=== PATIENT | female | born 1985 | race American Indian/Alaskan Native ===

== ENCOUNTER 2020-08-09 16:07 | Emergency (ER) | payer MEDICAID ==
[2020-08-09] MEDS ORDERED: KETOROLAC 30 MG/1 ML INJ IV ONE (18:07)
[2020-08-09] MEDS ORDERED: dexAMETHasone 20 MG/5 ML VIAL IV ONE (18:07)
[2020-08-09] MEDS ORDERED: CYCLOBENZAPRINE 10 MG TAB PO ONE (18:07)
--- NOTE | 2020-08-09 18:09 | Emergency Department Report ---
ED Back Pain/Injury HPI - General Chief Complaint: Back Pain/Injury Stated Complaint: BACK PAIN Time Seen by Provider: 08/09/20 18:07 Source: patient Limitations: No Limitations - History of Present Illness Initial Comments: Patient is a 34-year-old female presents emergency room complaints of lower back pain that began 3 days ago. She states that the pain will radiate down her right leg. She states that she has pain with moving her legs and ambulating. She states that at times she feels like the back pain will make her legs weak. She is able to ambulate. She denies any numbness, bowel or bladder incontinence, fever, nausea, vomiting, diarrhea. She states that she had the same back pain 8 months ago but never followed up. She was evaluated in the emergency department at that time and had a x-ray of her lumbar spine which was within normal limits. She states that she has a past medical history of back pain secondary to a traumatic epidural approximately 7 years ago. She denies any medication allergies. - Related Data Previous Rx's Medication Instructions Recorded Last Taken Type Naproxen [Naprosyn] 500 mg PO BID #20 tablet 09/14/19 Unknown Rx methOCARBAMOL [Robaxin TAB] 500 mg PO Q8HR PRN #20 tablet 09/14/19 Unknown Rx predniSONE [Deltasone] 50 mg PO QDAY #5 tab 09/14/19 Unknown Rx traMADoL [Ultram] 50 mg PO Q6HR PRN #7 tablet 09/14/19 Unknown Rx Menthol/Camphor [[place] 1 applicatio TP BID #18 oint...g. 08/09/20 Unknown Rx Ointment] Naproxen [EC-Naprosyn] 500 mg PO BID PRN #14 tablet.dr 08/09/20 Unknown Rx methOCARBAMOL [Robaxin TAB] 500 mg PO BID PRN #14 tab 08/09/20 Unknown Rx traMADoL [Ultram 50 MG tab] 50 mg PO Q6HR PRN #10 tablet 08/09/20 Unknown Rx Allergies Allergy/AdvReac Type Severity Reaction Status Date / Time No Known Allergies Allergy Unverified 08/09/20 17:26 ED Review of Systems ROS: Stated complaint: BACK PAIN Other details as noted in HPI Comment: All other systems reviewed and negative ED Past Medical Hx - Past Medical History Additional medical history: BACK PAIN - Surgical History Additional Surgical History: - Social History Smoking Status: Current Every Day Smoker Substance Use Type: Alcohol - Medications Home Medications: Home Medications Medication Instructions Recorded Confirmed Last Taken Type Naproxen [Naprosyn] 500 mg PO BID #20 tablet 09/14/19 Unknown Rx methOCARBAMOL [Robaxin TAB] 500 mg PO Q8HR PRN #20 tablet 09/14/19 Unknown Rx predniSONE [Deltasone] 50 mg PO QDAY #5 tab 09/14/19 Unknown Rx traMADoL [Ultram] 50 mg PO Q6HR PRN #7 tablet 09/14/19 Unknown Rx Menthol/Camphor [[place] 1 applicatio TP BID #18 oint...g. 08/09/20 Unknown Rx Ointment] Naproxen [EC-Naprosyn] 500 mg PO BID PRN #14 tablet.dr 08/09/20 Unknown Rx methOCARBAMOL [Robaxin TAB] 500 mg PO BID PRN #14 tab 08/09/20 Unknown Rx traMADoL [Ultram 50 MG tab] 50 mg PO Q6HR PRN #10 tablet 08/09/20 Unknown Rx ED Physical Exam - General Limitations: No Limitations General appearance: alert, in no apparent distress - Head Head exam: Present: atraumatic, normocephalic - Eye Eye exam: Present: normal appearance - ENT ENT exam: Present: mucous membranes moist - Respiratory Respiratory exam: Present: normal lung sounds bilaterally. Absent: respiratory distress, wheezes, rales, rhonchi, stridor, chest wall tenderness, accessory muscle use, decreased breath sounds, prolonged expiratory - Cardiovascular Cardiovascular Exam: Present: regular rate, normal rhythm, normal heart sounds. Absent: diastolic murmur, rubs, gallop - Back Exam Back exam: Present: normal inspection, full ROM, paraspinal tenderness (lumbar), vertebral tenderness (lumbar), other (no erythema, no increased warmth, no skin changes) - Neurological Exam Neurological exam: Present: alert, oriented X3, CN II-XII intact, normal gait. Absent: motor sensory deficit - Psychiatric Psychiatric exam: Present: normal affect, normal mood - Skin Skin exam: Present: warm, dry, intact ED Course Vital Signs 08/09/20 17:30 Temperature 98.6 F Pulse Rate 85 Respiratory 20 Rate Blood Pressure 143/77 O2 Sat by Pulse 100 Oximetry ED Medical Decision Making - Radiology Data Radiology results: report reviewed Ordering Physician: NOMI YU Date of Service: 08/09/20 Procedure(s): CT lumbar spine wo con Accession Number(s): [id number] cc: NOMI YU CT lumbar spine wo con INDICATION / CLINICAL INFORMATION: 34 years Female; low back pain, pain radiates left side. TECHNIQUE: Axial CT images of the lumbar spine were obtained. Sagittal and coronal reformatted images were produced. All CT scans at this location are performed using CT dose reduction for ALARA by means of automated exposure control. COMPARISON: None available. FINDINGS: POST-SURGICAL CHANGES: None. ALIGNMENT: Straightening of the lumbar spine noted related to patient positioning. VERTEBRAE: No signs of fracture. Vertebral bodies are grossly normal in height throughout. No significant facet joint disease or osseous foraminal narrowing appreciated. INTERVERTEBRAL DISCS: At L4-5, there is mild disc bulge and mild canal narrowing. At L5-S1, there is mild disc bulge as well as a left paracentral/left lateral recess disc protrusion. Minimal facet hypertrophy noted. Findings encroach upon and certainly may affect the left S1 nerve. No significant foraminal narrowing. PARASPINAL SOFT TISSUES: No significant abnormality. ADDITIONAL FINDINGS: None. IMPRESSION: 1. No signs of discitis or epidural fluid collection. 2. Disc disease as described above. Most marked findings appear to be at L5-S1. Please correlate with dermatomal distribution of patient's symptoms, if present. Signer Name: Yasir Vicente MD, III Signed: 08/09/2020 8:01 PM Workstation Name: [email or web address] Transcribed By: HR Dictated By: Yasir Vicente MD Electronically Authenticated By: Yasir Vicente MD Signed Date/Time: 08/09/202000 DD/ 57 TD/TT: Print Cancel - Medical Decision Making Patient is a 34-year-old female presents emergency room complaints of lower back pain that began 3 days ago. She states that the pain will radiate down her right leg. She states that she has pain with moving her legs and ambulating. She states that at times she feels like the back pain will make her legs weak. She is able to ambulate. She denies any numbness, bowel or bladder incontinence, fever, nausea, vomiting, diarrhea. She states that she had the same back pain 8 months ago but never followed up. She was evaluated in the emergency department at that time and had a x-ray of her lumbar spine which was within normal limits. She states that she has a past medical history of back pain secondary to a traumatic epidural approximately 7 years ago. She denies any medication allergies. Vitals are stable. On exam: Midline and paraspinal lumbar tenderness palpation, no step-offs, no deformities, no focal neuro deficits. CT lumbar spine: 1. No signs of discitis or epidural fluid collection. 2. Disc disease as described above. Most marked findings appear to be at L5-S1. Please correlate with dermatomal distribution of patient's symptoms, if present. Discussed all results with patient and answered questions. Patient given medications while in the emergency department as she did not drive and symptoms improved. Discussed the importance of follow-up. Patient given prescription for Robaxin, naproxen, prednisone, tramadol, [place] balm ointment. Advised patient Use medication as prescribed. Do not drive or operate machinery while taking severe pain medication or muscle relaxer Robaxin. May use ice pack, heating pad, rest, and epsom salt bath. Follow-up with a orthopedic/spine doctor. Return to emergency room for any worsening symptoms. Critical care attestation.: If time is entered above; I have spent that time in minutes in the direct care of this critically ill patient, excluding procedure time. ED Disposition Clinical Impression: Bulging disc, Lumbar radiculopathy Low back pain Qualifiers: Chronicity: acute Back pain laterality: bilateral Sciatica presence: unspecified whether sciatica present Qualified Code(s): M54.5 - Low back pain Disposition: DC-01 TO HOME OR SELFCARE Is pt being admited?: No Does the pt Need Aspirin: No Condition: Stable Instructions: Herniated Disk, [id number], Lumbosacral Radiculopathy Additional Instructions: Use medication as prescribed. Do not drive or operate machinery while taking severe pain medication or muscle relaxer Robaxin. May use ice pack, heating pad, rest, and epsom salt bath. Follow-up with a orthopedic/spine doctor. Return to emergency room for any worsening symptoms. Prescriptions: Naproxen [EC-Naprosyn] 500 mg PO BID PRN #14 tablet.dr GALVAN Reason: pain methOCARBAMOL [Robaxin TAB] 500 mg PO BID PRN #14 tab PRN Reason: pain Menthol/Camphor [[place] Ointment] 1 applicatio TP BID #18 oint...g. traMADoL [Ultram 50 MG tab] 50 mg PO Q6HR PRN #10 tablet PRN Reason: Pain , Severe (7-10) Referrals: PRIMARY CAREMD [Primary Care Provider] - 2-3 Days NADINE BEARDEN II, MD [Staff Physician] - 2-3 Days Time of Disposition: 20:38 Print Language: BENGALI
[2020-08-09 18:40] LABS: Bilirubin,Urine NEG (Negative); Blood,Urine NEG (Negative); Color,Urine Yellow (Yellow); Mucus,Urine 1+ /HPF
[2020-08-09 18:41] LABS: HCG Qualitative,Urine Negative (Negative)
[2020-08-09] MEDS ORDERED: HYDROmorphone 1 MG/1 ML INJ IV ONE (20:05)
--- NOTE | 2020-08-09 20:05 | Cat Scan Report ---
CT lumbar spine wo con INDICATION / CLINICAL INFORMATION: 34 years Female; low back pain, pain radiates left side. TECHNIQUE: Axial CT images of the lumbar spine were obtained. Sagittal and coronal reformatted images were prod uced. All CT scans at this location are performed using CT dose reduction for ALARA by means of autom ated exposure control. COMPARISON: None available. FINDINGS: POST-SURGICAL CHANGES: None. ALIGNMENT: Straightening of the lumbar spine noted related to patient positioning. VERTEBRAE: No signs of fracture. Vertebral bodies are grossly normal in height throughout. No signif icant facet joint disease or osseous foraminal narrowing appreciated. INTERVERTEBRAL DISCS: At L4-5, there is mild disc bulge and mild canal narrowing. At L5-S1, there is mild disc bulge as well as a left paracentral/left lateral recess disc protrusion. Minimal facet hypertrophy noted. Findings encroach upon and certainly may affect the left S1 nerve. No significant foraminal narrowing. PARASPINAL SOFT TISSUES: No significant abnormality. ADDITIONAL FINDINGS: None. IMPRESSION: 1. No signs of discitis or epidural fluid collection. 2. Disc disease as described above. Most marked findings appear to be at L5-S1. Please correlate with dermatomal distribution of patient's symptoms, if present. Signer Name: Yasir Vicente MD, III Signed: 08/09/2020 8:01 PM Workstation Name: [email or web address] [email or web address]
[2020-08-10 02:55] VITALS: BP 117/52
== END 2020-08-09 21:00 | disposition home or self-care (01) ==
LOC: ED 16:07
DX: M54.16 Radiculopathy, lumbar region (principal); M51.36 Other intervertebral disc degeneration, lumbar region; F17.200 Nicotine dependence, unspecified, uncomplicated; Z79.899 Other long term (current) drug therapy
CPT/HCPCS: 72131; 81001; 81025; 96374; 96375; 99284; J1100; J1170; J1885

== ENCOUNTER 2020-08-24 20:56 | Emergency (ER) | payer MEDICAID ==
[2020-08-24 22:50] VITALS: BP 161/82
[2020-08-24] MEDS ORDERED: KETOROLAC 30 MG/1 ML INJ IM ONE (23:58)
[2020-08-24] MEDS ORDERED: dexAMETHasone 20 MG/5 ML VIAL IM ONE (23:58)
[2020-08-25] MEDS ORDERED: CYCLOBENZAPRINE 10 MG TAB PO ONE (00:06)
--- NOTE | 2020-08-25 00:57 | Emergency Department Report ---
ED Back Pain/Injury HPI - General Chief Complaint: Extremity Injury, Lower Stated Complaint: LT LEG PAIN Time Seen by Provider: 08/24/20 23:55 Source: patient Limitations: No Limitations - History of Present Illness Initial Comments: Patient is a 34-year-old -[place] female who presents with low back pain radiating from lumbar to left foot patient has history of same 2 months ago , patient denies new fall injury or trauma however pain is 8/10 . Pain is exacerbated by palpation and movement. Pain is relieved by rest. There is no numbness, tingling, deformity, patient states unable to ambulate due to pain. There is been no loss or decrease in bowel or bladder function. MD Complaint: back pain (Stenosis in his hand examining and is is is is is is been evaluated) - Related Data Previous Rx's Medication Instructions Recorded Last Taken Type Naproxen [Naprosyn] 500 mg PO BID #20 tablet 09/14/19 Unknown Rx methOCARBAMOL [Robaxin TAB] 500 mg PO Q8HR PRN #20 tablet 09/14/19 Unknown Rx predniSONE [Deltasone] 50 mg PO QDAY #5 tab 09/14/19 Unknown Rx traMADoL [Ultram] 50 mg PO Q6HR PRN #7 tablet 09/14/19 Unknown Rx Menthol/Camphor [[place] [employer] 1 applicatio TP BID #18 oint...g. 08/09/20 Unknown Rx Ointment] Naproxen [EC-Naprosyn] 500 mg PO BID PRN #14 tablet. 08/09/20 Unknown Rx methOCARBAMOL [Robaxin TAB] 500 mg PO BID PRN #14 tab 08/09/20 Unknown Rx traMADoL [Ultram 50 MG tab] 50 mg PO Q6HR PRN #10 tablet 08/09/20 Unknown Rx Acetaminophen/Codeine [Tylenol 1 tab PO Q6H PRN #12 tab 08/25/20 Unknown Rx /Codeine # 3 tab] Diclofenac [Ayaan Amin] 75 mg PO TID PRN #30 tablet 08/25/20 Unknown Rx Menthol/Camphor [[place] [employer] 1 applicatio TP Q6H PRN #1 tube 08/25/20 Unknown Rx Ointment] methOCARBAMOL [Robaxin TAB] 500 mg PO Q8H PRN 5 Days #15 tablet 08/25/20 Unknown Rx Allergies Allergy/AdvReac Type Severity Reaction Status Date / Time No Known Allergies Allergy Verified 08/24/20 22:26 ED Review of Systems ROS: Stated complaint: LT LEG PAIN Other details as noted in HPI Constitutional: denies: chills, fever Eyes: denies: eye pain, eye discharge, vision change ENT: denies: ear pain, throat pain Respiratory: denies: cough, shortness of breath, wheezing Cardiovascular: denies: chest pain, palpitations Endocrine: no symptoms reported Gastrointestinal: denies: abdominal pain, nausea, diarrhea Genitourinary: denies: urgency, dysuria, discharge Musculoskeletal: back pain, myalgia (left LE ). denies: joint swelling, arthralgia Skin: denies: rash, lesions Neurological: denies: headache, weakness, paresthesias Psychiatric: denies: anxiety, depression Hematological/Lymphatic: denies: easy bleeding, easy bruising ED Past Medical Hx - Past Medical History Previous Medical History?: Yes Additional medical history: BACK PAIN. bulging disc - Surgical History Past Surgical History?: Yes Additional Surgical History: - Social History Smoking Status: Never Smoker Substance Use Type: None - Medications Home Medications: Home Medications Medication Instructions Recorded Confirmed Last Taken Type Naproxen [Naprosyn] 500 mg PO BID #20 tablet 09/14/19 Unknown Rx methOCARBAMOL [Robaxin TAB] 500 mg PO Q8HR PRN #20 tablet 09/14/19 Unknown Rx predniSONE [Deltasone] 50 mg PO QDAY #5 tab 09/14/19 Unknown Rx traMADoL [Ultram] 50 mg PO Q6HR PRN #7 tablet 09/14/19 Unknown Rx Menthol/Camphor [[place] [employer] 1 applicatio TP BID #18 oint...g. 08/09/20 Unknown Rx Ointment] Naproxen [EC-Naprosyn] 500 mg PO BID PRN #14 tablet.dr 08/09/20 Unknown Rx methOCARBAMOL [Robaxin TAB] 500 mg PO BID PRN #14 tab 08/09/20 Unknown Rx traMADoL [Ultram 50 MG tab] 50 mg PO Q6HR PRN #10 tablet 08/09/20 Unknown Rx Acetaminophen/Codeine [Tylenol 1 tab PO Q6H PRN #12 tab 08/25/20 Unknown Rx /Codeine # 3 tab] Diclofenac Dr [Voltaren Dr] 75 mg PO TID PRN #30 tablet 08/25/20 Unknown Rx Menthol/Camphor [[place] [employer] 1 applicatio TP Q6H PRN #1 tube 08/25/20 Unknown Rx Ointment] methOCARBAMOL [Robaxin TAB] 500 mg PO Q8H PRN 5 Days #15 tablet 08/25/20 Unknown Rx ED Physical Exam - General Limitations: No Limitations General appearance: alert, in no apparent distress - Head Head exam: Present: atraumatic, normocephalic - Eye Eye exam: Present: normal appearance, PERRL, EOMI Pupils: Present: normal accommodation - ENT ENT exam: Present: mucous membranes moist - Neck Neck exam: Present: normal inspection - Respiratory Respiratory exam: Present: normal lung sounds bilaterally. Absent: respiratory distress - Cardiovascular Cardiovascular Exam: Present: regular rate, normal rhythm, normal heart sounds. Absent: systolic murmur, diastolic murmur, rubs, gallop - GI/Abdominal GI/Abdominal exam: Present: soft, normal bowel sounds. Absent: distended, tenderness - Rectal Rectal exam: Present: deferred - Extremities Exam Extremities exam: Present: full ROM, normal capillary refill. Absent: tenderness - Expanded Lower Extremity Exam Left Hip exam: Present: full ROM. Absent: tenderness Upper Leg exam: Present: full ROM. Absent: tenderness Knee exam: Present: full ROM. Absent: tenderness Lower Leg exam: Present: full ROM. Absent: tenderness, swelling, palpable cord, Prabhjot's sign Ankle exam: Present: full ROM. Absent: tenderness Foot/Toe exam: Present: full ROM. Absent: tenderness, swelling Neuro vascular tendon exam: Present: significant pain with passive ROM of distal joint. Absent: pulse deficit, motor deficit, sensory deficit, tendon deficit, pallor, decreased fine/light touch, foot drop Gait: Positive: observed and limited by pain - Back Exam Back exam: Present: normal inspection, full ROM, muscle spasm, paraspinal tenderness, vertebral tenderness. Absent: CVA tenderness (R), CVA tenderness (L) - Expanded Back Exam Expanded Back exam: Absent: saddle anesthesia Back exam: Positive Straight Leg Raise: Left, Negative Straight Leg Raising: Right - Neurological Exam Neurological exam: Present: alert, oriented X3, CN II-XII intact, reflexes normal - Expanded Neurological Exam Expanded Patient oriented to: Present: person, place, time Speech: Present: fluid speech Motor strength exam: RUE: 5, LUE: 5, RLE: 5, LLE: 5 DTR: knee (R): 2+, knee (L): 2+ Best Eye Response ([place]): (4) open spontaneously Best Motor Response ([place]): (6) obeys commands Best Verbal Response ([place]): (5) oriented [place] Total: 15 - Psychiatric Psychiatric exam: Present: normal affect, normal mood - Skin Skin exam: Present: warm, dry, intact, normal color. Absent: rash ED Course Vital Signs 08/24/20 22:20 Temperature 99.0 F Pulse Rate 69 Respiratory 16 Rate Blood Pressure 161/82 O2 Sat by Pulse 99 Oximetry ED Medical Decision Making - Lab Data Labs 08/25/20 01:41 Urine Color Yellow Urine Turbidity Cloudy Urine pH 6.0 Ur Specific [place] 1.011 Urine Protein <15 mg/dl Urine Glucose (UA) Neg Urine Ketones Tr Urine Blood Mod Urine Nitrite Neg Urine Bilirubin Neg Urine Urobilinogen < 2.0 Ur Leukocyte Esterase Lg Urine WBC (Auto) 54.0 H Urine RBC (Auto) 6.0 U Epithel Cells (Auto) 24.0 H Urine Mucus Few Urine Yeast (Budding) Few Urine HCG, Qual Negative - Radiology Data Radiology results: report reviewed, image reviewed CT lumbar spine wo con INDICATION / CLINICAL INFORMATION: 34 years Female; low back pain, pain radiates left side. TECHNIQUE: Axial CT images of the lumbar spine were obtained. Sagittal and coronal reformatted images were produced. All CT scans at this location are performed using CT dose reduction for ALARA by means of automated exposure control. COMPARISON: None available. FINDINGS: POST-SURGICAL CHANGES: None. ALIGNMENT: Straightening of the lumbar spine noted related to patient positioning. VERTEBRAE: No signs of fracture. Vertebral bodies are grossly normal in height throughout. No significant facet joint disease or osseous foraminal narrowing appreciated. INTERVERTEBRAL DISCS: At L4-5, there is mild disc bulge and mild canal narrowing. At L5-S1, there is mild disc bulge as well as a left paracentral/left lateral recess disc protrusion. Minimal facet hypertrophy noted. Findings encroach upon and certainly may affect the left S1 nerve. No significant foraminal narrowing. PARASPINAL SOFT TISSUES: No significant abnormality. ADDITIONAL FINDINGS: None. IMPRESSION: 1. No signs of discitis or epidural fluid collection. 2. Disc disease as described above. Most marked findings appear to be at L5-S1. Please correlate with dermatomal distribution of patient's symptoms, if present. Signer Name: Yasir Vicente MD, III Signed: 08/09/2020 8:01 PM Workstation Name: [id number] Transcribed By: Dictated By: Yasir Vicente MD Electronically Authenticated By: Yasir Vicente MD Signed Date/Time: 08/09/202000 DD/ 57 TD/TT: Ordering Physician: RAHEEM MORGAN NP Date of Service: 08/25/20 Procedure(s): CT lumbar spine wo con Accession Number(s): [id number] cc: RAHEEM MORGAN NP CT LUMBAR SPINE WITHOUT CONTRAST INDICATION: Patient complains of worsening lower back pain that radiates down. TECHNIQUE: Axial CT images of the spine were obtained. Sagittal and coronal reformatted images were produced. All CT scans at this location are performed using CT dose reduction for ALARA by means of automated exposure control. COMPARISON: 08/09/2020 FINDINGS: ACUTE FRACTURE(S) OR SUBLUXATION: None. SPINAL DEGENERATIVE CHANGES: At L5-S1 there is disc bulge left paracentral/lateral recess (axial series 5 image 66). This is similar to the prior. At L4-5 there is mild broad-based disc bulge. PARASPINAL SOFT TISSUES: No soft tissue swelling or other acute abnormalities. ADDITIONAL FINDINGS: No significant additional findings. IMPRESSION: 1. No acute fracture or subluxation in the spine in neutral position. 2. Persistent disc bulge L5-S1 left paracentral/lateral recess region, correlate with symptomatology/radiculopathy. Signer Name: Kameron Hernandez MD Signed: 08/25/2020 2:09 AM Workstation Name: [id number] Transcribed By: Dictated By: Kameron Hernandez MD Electronically Authenticated By: Kameron Hernandez MD Signed Date/Time: 08/25/20208 DD/ 4 TD/TT: - Medical Decision Making CT lumbar spine no new fracture or soft tissue abnormality. L-spine radiculopathy as per previous CT and x-rays. Plan NSAIDs short burst steroids analgesic balm, follow-up with Ortho for eval, UA noted for leukocytes and WBCs will treat for same with antibiotics. Patient will be DC'd home in stable condition at this time. Pain is improved to 2/10. patient is alert, oriented x3, ambulatory with steady gait at this time. Patient DC'd to home via POV and ,family member is six horse hitch driver. Critical care attestation.: If time is entered above; I have spent that time in minutes in the direct care of this critically ill patient, excluding procedure time. ED Disposition Clinical Impression: Bulging discs UTI (urinary tract infection) Qualifiers: Urinary tract infection type: acute cystitis Hematuria presence: without hematuria Qualified Code(s): N30.00 - Acute cystitis without hematuria Disposition: DC-01 TO HOME OR SELFCARE Is pt being admited?: No Does the pt Need Aspirin: No Condition: Stable Instructions: Urinary Tract Infection, Adult, Yihy-sh-Pnex, Low Back Sprain or Strain Rehab-SportsMed Additional Instructions: Moist heat therapy to back , take medications as prescribed, follow up with orthopedic doctor in 2-3 days, back exercises. return to emergency if symptoms worsen. Prescriptions: methOCARBAMOL [Robaxin TAB] 500 mg PO Q8H PRN 5 Days #15 tablet PRN Reason: pain spasm Menthol/Camphor [[employer] [employer] Ointment] 1 applicatio TP Q6H PRN #1 tube PRN Reason: pain Acetaminophen/Codeine [Tylenol /Codeine # 3 tab] 1 tab PO Q6H PRN #12 tab PRN Reason: pain Diclofenac Dr [Voltaren Dr] 75 mg PO TID PRN #30 tablet PRN Reason: pain Referrals: SUMMER LEIGH MD [Staff Physician] - 3-5 Days Forms: Work/School Release Form(ED) Time of Disposition: 03:07
[2020-08-25] MEDS ORDERED: MORPHINE 4 MG/1 ML INJ IV ONE (01:31)
[2020-08-25] MEDS ORDERED: ONDANSETRON 4 MG/2 ML INJ IV ONE (01:31)
--- NOTE | 2020-08-25 02:13 | Cat Scan Report ---
CT LUMBAR SPINE WITHOUT CONTRAST INDICATION: Patient complains of worsening lower back pain that radiates down. TECHNIQUE: Axial CT images of the spine were obtained. Sagittal and coronal reformatted images were produced. Al l CT scans at this location are performed using CT dose reduction for ALARA by means of automated exp osure control. COMPARISON: 08/09/2020 FINDINGS: ACUTE FRACTURE(S) OR SUBLUXATION: None. SPINAL DEGENERATIVE CHANGES: At L5-S1 there is disc bulge left paracentral/lateral recess (axial seri es 5 image 66). This is similar to the prior. At L4-5 there is mild broad-based disc bulge. PARASPINAL SOFT TISSUES: No soft tissue swelling or other acute abnormalities. ADDITIONAL FINDINGS: No significant additional findings. IMPRESSION: 1. No acute fracture or subluxation in the spine in neutral position. 2. Persistent disc bulge L5-S1 left paracentral/lateral recess region, correlate with symptomatology/ radiculopathy. Signer Name: Kameron Hernandez MD Signed: 08/25/2020 2:09 AM Workstation Name: [id number]
[2020-08-25 02:32] LABS: Bilirubin,Urine NEG (Negative); Blood,Urine MOD (Negative); Color,Urine Yellow (Yellow); HCG Qualitative,Urine Negative (Negative); Mucus,Urine FEW /HPF; Protein,Urine <15 mg/dL mg/dL (Negative); Urobilinogen,Urine < 2.0 mg/dL (<2.0)
[2020-08-25] MEDS ORDERED: ACETAMINOPHEN W/CODEINE 300-30 MG TAB PO ONE (03:33)
== END 2020-08-25 03:40 | disposition home or self-care (01) ==
LOC: ED 20:56
DX: N39.0 Urinary tract infection, site not specified (principal); M51.36 Other intervertebral disc degeneration, lumbar region; Z79.899 Other long term (current) drug therapy
CPT/HCPCS: 72131; 81001; 81025; 87086; 96372; 96374; 96375; 99284; J1100; J1885; J2270; J2405